=== PATIENT | female | born 1945 | race African-American/Black ===

== ENCOUNTER 2018-06-10 10:09 | Day surgery (SDC) | payer OTHER ==
[2018-06-08 15:15] VITALS: BMI 22.4
[~2018-06-10 10:09] MED LIST: ACETAMINOPHEN 325 MG TABLET (FP) PO PRN; CYCLOPENTOLATE HCL 1% OPHTH SOLN 2 ML BOTTLE OP SCH; KETOROLAC TROMETHAMINE 0.5% EYE DROP 1 DROP DROPS OP SCH; OFLOXACIN 0.3% OPHTHALMIC SOLUTION 5 ML BOTTLE OP SCH; PHENYLEPHRINE 2.5% OPHTH SOLN 15 ML BOTTLE OP SCH; TROPICAMIDE 1% OPHTH SOLN 15 ML BOTTLE OP SCH
[2018-06-10] MEDS: OFLOXACIN 0.3% OPHTHALMIC SOLUTION 5 ML BOTTLE ONE ×3 (10:40→11:13)
[2018-06-10] MEDS: PHENYLEPHRINE 2.5% OPHTH SOLN 15 ML BOTTLE ONE ×3 (10:40→11:14)
[2018-06-10] MEDS: KETOROLAC TROMETHAMINE 0.5% EYE DROP 1 DROP DROPS ONE ×3 (10:40→11:12)
[2018-06-10] MEDS: CYCLOPENTOLATE HCL 1% OPHTH SOLN 2 ML BOTTLE ONE ×3 (10:40→11:12)
[2018-06-10] MEDS: TROPICAMIDE 1% OPHTH SOLN 15 ML BOTTLE ONE ×3 (10:40→11:13)
[2018-06-10] MEDS ORDERED: EPINEPHrine/PF 1 MG/1 ML (1:1,000) AMPULE ONE (12:25)
[2018-06-10] MEDS ORDERED: BSS (NA/CA/MG/K) BALANCED SALT SOLUTION OPHTH SOLN 15 ML BOTTLE ONE (12:25)
[2018-06-10] MEDS ORDERED: LIDOCAINE HCL/PF 1% SDV 5ML VIAL ONE (12:25)
[2018-06-10] MEDS ORDERED: LIDOCAINE HCL/PF 2% SDV 5ML VIAL ONE (12:25)
[2018-06-10] MEDS ORDERED: BUPIVACAINE HCL/PF 0.75% 10 ML VIAL ONE (12:25)
[2018-06-10] MEDS ORDERED: PROPOFOL 20 ML ONE (12:39)
[2018-06-10] MEDS ORDERED: BUPIVACAINE HCL/PF 0.75% 10 ML VIAL RB ONE ×3 (12:44→12:46)
[2018-06-10] MEDS ORDERED: LIDOCAINE HCL 2% (50ML VIAL) RB ONE ×3 (12:45→12:46)
[2018-06-10] MEDS ORDERED: POVIDONE-IODINE 5% OPHTHALMIC PREP 30 ML SOLUTION OD ONE (12:48)
[2018-06-10] MEDS ORDERED: LIDOCAINE HCL 1% PRESERVATIVE FREE - 30ML VIAL IO ONE (12:52)
[2018-06-10] MEDS ORDERED: TRYPAN BLUE 0.5 ML DISP.SYRIN IO ONE (12:53)
[2018-06-10] MEDS ORDERED: EPINEPHrine/PF 1 MG/1 ML (1:1,000) AMPULE IO ONE (12:53)
[2018-06-10] MEDS ORDERED: CHONDROITIN SU A/HYALUR SOD 1 KIT IO ONE (12:53)
[2018-06-10] MEDS ORDERED: VANCOMYCIN 500 MG VIAL (RESTRICTED TO ID ONLY) IVPB ONE (12:54)
[2018-06-10] MEDS ORDERED: TRYPAN BLUE 0.5 ML DISP.SYRIN ONE (13:31)
[2018-06-10] MEDS ORDERED: CHONDROITIN SU A/HYALUR SOD 1 KIT ONE (13:44)
[2018-06-10 14:02] VITALS: TEMP 98.1
--- NOTE | 2018-06-10 14:09 | OP ---
DATE OF OPERATION: DATE OF DICTATION: 06/10/2018 PREOPERATIVE DIAGNOSIS: Cataract, right eye. ASSOCIATED DIAGNOSIS: Persistent miosis. PROCEDURE: Phacoemulsification of right cataract with pupil expansion with iris hooks and capsule staining trypan blue and posterior chamber intraocular lens implantation. LENS USED: SN60WF 23.5 diopter power, serial number [id number] ANESTHESIA: Peribulbar/modified Van Lint/MAC. COMPLICATIONS: None. PROCEDURE: The patient was brought to the operating room and correctly identified along with the operative site and the correct intraocular lens lane. She was then given a peribulbar block under sedation with 5 mL in a 1:1 mixture of 2% lidocaine and 0.75% bupivacaine. Then 2% of the same mixture was given as a modified lid block. The eye was then prepped and draped in the usual sterile fashion including 5% Betadine solution in the conjunctival sac and an eyelid drape. An eyelid speculum was then placed into the right eye. The eye was inspected, and a 2.5- to 3-mm pupil was noted. A paracentesis port was created. Intracameral lidocaine was given. Viscoelastic was also injected to attempt to viscodilate the pupil; however, this did not help. A temporal clear corneal wound was created, and 5 additional paracentesis ports were created to place iris hooks. The iris hooks were then placed in a fashion to expand the pupil. The capsule was then stained with trypan blue beneath the Viscoelastic. A continuous circular capsulorrhexis was performed. The nucleus was then hydrodissected with BSS and removed using phacoemulsification via the uatldv-eem-toadhyo approach. The remaining cortical material was irrigated and aspirated from the eye. The Viscoelastic was injected into inflate the capsular bag. The lens was injected into the capsular bag. The iris hooks were then gently removed with care not to catch the anterior capsulorrhexis. The Viscoelastic was then irrigated and aspirated from the eye. All wounds were then tested and found to be watertight. No additional suture was necessary. Topical vancomycin given. The eye was patched and shielded, and the patient was discharged from the operating room in a stable condition. JONG PINK M.D. [id number]
[2018-06-10 15:26] VITALS: BP 145/71; PULSE 88
== END 2018-06-10 14:35 | disposition home or self-care (01) ==
LOC: JASU-SURG 10:09
PROVIDERS: ATTEND Ophthalmology
PROC: 08RJ3JZ Replacement of Right Lens with Synthetic Substitute, Percutaneous Approach (ICD-10-PCS; principal; 2018-06-10 12:00)
DX: H26.9 Unspecified cataract (principal); H57.03 Miosis; E11.9 Type 2 diabetes mellitus without complications; Z79.84 Long term (current) use of oral hypoglycemic drugs; I10 Essential (primary) hypertension
CPT/HCPCS: 82962

== ENCOUNTER 2018-07-01 08:13 | Day surgery (SDC) | payer OTHER ==
[2018-06-29 14:21] VITALS: BMI 22.4
[~2018-07-01 08:13] MED LIST changes: +BUPIVACAINE HCL/PF 0.75% 10 ML VIAL NR ONE; +CHONDROITIN SU A/HYALUR SOD 1 KIT IO ONE; +EPINEPHrine/PF 1 MG/1 ML (1:1,000) AMPULE SQ ONE; +LIDOCAINE HCL 1% PRESERVATIVE FREE - 30ML VIAL IO ONE; +LIDOCAINE HCL/PF 2% SDV 5ML VIAL INF ONE; +POVIDONE-IODINE 5% OPHTHALMIC PREP 30 ML SOLUTION OS ONE; +TRYPAN BLUE 0.5 ML DISP.SYRIN IO ONE
[2018-07-01 08:41] VITALS: TEMP 98.9
[2018-07-01] MEDS ORDERED: KETOROLAC TROMETHAMINE 0.5% EYE DROP 1 DROP DROPS ONE (09:05)
[2018-07-01] MEDS ORDERED: CYCLOPENTOLATE HCL 1% OPHTH SOLN 2 ML BOTTLE ONE (09:05)
[2018-07-01] MEDS ORDERED: PHENYLEPHRINE 2.5% OPHTH SOLN 15 ML BOTTLE ONE (09:05)
[2018-07-01] MEDS ORDERED: OFLOXACIN 0.3% OPHTHALMIC SOLUTION 5 ML BOTTLE ONE (09:05)
[2018-07-01] MEDS ORDERED: TROPICAMIDE 1% OPHTH SOLN 15 ML BOTTLE ONE (09:05)
[2018-07-01] MEDS ORDERED: POVIDONE-IODINE 5% OPHTHALMIC PREP 30 ML SOLUTION ONE (09:11)
[2018-07-01] MEDS ORDERED: MIDAZOLAM HCL 2 MG/2 ML SINGLE DOSE VIAL ONE (09:53)
[2018-07-01] MEDS ORDERED: LIDOCAINE HCL/PF 2% SDV 5ML VIAL ONE (09:54)
[2018-07-01] MEDS ORDERED: PROPOFOL 20 ML ONE (09:54)
[2018-07-01] MEDS ORDERED: LIDOCAINE HCL/PF 2% SDV 5ML VIAL INF ONE (10:03)
[2018-07-01] MEDS ORDERED: BUPIVACAINE HCL/PF 0.75% 10 ML VIAL NR ONE (10:03)
[2018-07-01] MEDS ORDERED: POVIDONE-IODINE 5% OPHTHALMIC PREP 30 ML SOLUTION OS ONE (10:05)
[2018-07-01] MEDS ORDERED: LIDOCAINE HCL 1% PRESERVATIVE FREE - 30ML VIAL IO ONE (10:11)
[2018-07-01] MEDS ORDERED: BSS (NA/CA/MG/K) BALANCED SALT SOLUTION OPHTH SOLN 15 ML BOTTLE OS ONE (10:11)
[2018-07-01] MEDS ORDERED: CHONDROITIN SU A/HYALUR SOD 1 KIT IO ONE (10:11)
[2018-07-01] MEDS ORDERED: TRYPAN BLUE 0.5 ML DISP.SYRIN IO ONE (10:11)
[2018-07-01] MEDS ORDERED: EPINEPHrine/PF 1 MG/1 ML (1:1,000) AMPULE SQ ONE (10:28)
[2018-07-01 12:16] VITALS: BP 139/60; PULSE 68
--- NOTE | 2018-07-01 14:21 | OP ---
DATE OF OPERATION: 07/01/2018 SURGEON: Jong Pink M.D. PREOPERATIVE DIAGNOSIS: Cataract, left eye, with associated diagnosis persistent miosis. POSTOPERATIVE DIAGNOSIS: Cataract, left eye, with associated diagnosis persistent miosis. PROCEDURE: Phacoemulsification of left cataract with pupil extension with iris hooks and capsular staining with Trypan blue, and posterior chamber intraocular lens implantation. Lens used SN60WF, 23.0 diopter power, serial No. [id number]. ANESTHESIA: Peribular/ Modified Van Lint/MAC. COMPLICATIONS: None. DESCRIPTION OF PROCEDURE: The patient was brought into the operating room and correctly identified along with the operative site as well as correct intraocular lens lane. In the ASU, the patient had complained of a red eye starting today , but in her right eye, the nonoperative eye. There was also no change in vision noted. The patient was examined in the AU, but the right eye was quickly inspected under the microscope. 1+ conjunctival injection was noted; however, no follicular or papillary reaction was noted. The cornea seemed to be clear, and there was no evidence of any intraocular inflammation otherwise. There was no purulent discharge, as well. The patient was then given the option as she was in the ambulatory surgery center to postpone the surgery, but as there was no sign of infection, the patient had already decided that she wanted to proceed with surgery, given that her daughter had traveled to take care of her today. The patient was then given a peribulbar block under sedation with 5 mL of 1-to-1 mixture of 2% lidocaine and 0.75% bupivacaine. Then, 2 mL of the same mixture was given as a modified Van Lint block. An eyelid speculum was then placed into the left eye. The pupil size was measured and measured 3.5 mm. A paracentesis port was created, and intracameral lidocaine 1% 0.5 mL was given intracamerally. The capsule was then stained with Trypan blue. Viscoelastic was then injected to inflate the anterior chamber. A temporal clear corneal wound was created, and 5 additional paracentesis ports were created. Iris hooks were placed to expand the pupil. Viscoelastic was once again placed in the anterior chamber to stabilize it, and a continuous circular capsulorrhexis was performed, and the nucleus hydro-dissected with BSS and removed with phacoemulsification via the [id number]-xmt-hyceneo approach. The remaining cortical material was irrigated and aspirated from the eye. The lens was injected into the capsular bag. The iris hooks were then removed from the eye, and the viscoelastic was irrigated and aspirated. All wounds were tested and found to be watertight. No suture was placed. The intraocular lens was noted to be well centered and covered by the anterior capsular border. Topical vancomycin and 1 drop of Betadine were given, and the eye patched and shielded, and the patient was discharged from the operating room in a stable condition. JONG PINK M.D. [id number] MTDD
== END 2018-07-01 12:19 | disposition home or self-care (01) ==
LOC: JASU-SURG 08:13
PROVIDERS: ATTEND Ophthalmology
PROC: 08RK3JZ Replacement of Left Lens with Synthetic Substitute, Percutaneous Approach (ICD-10-PCS; principal; 2018-07-01 09:00)
DX: H26.9 Unspecified cataract (principal); H57.03 Miosis
CPT/HCPCS: 82962